=== PATIENT | male | born 1970 | race Caucasian/White ===

== ENCOUNTER 2025-01-15 11:31 | Emergency (ER) | payer OTHER, SELFPAY ==
[2025-01-15 11:37] VITALS: BP 154/99
[2025-01-15 14:20] VITALS: BP 129/87
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
[2025-01-15] MEDS: DECADRON 10 MG PO (14:58)
[2025-01-15] MEDS: MOTRIN 600 MG PO (14:58)
== END 2025-01-15 15:01 | disposition home or self-care (01) ==
LOC: EMR 11:31
PROVIDERS: EMERGENCY PHYSICIAN Emergency Medicine; FAMILY PHYSICIAN Physician Assistant Medical
DX: R51.9 Headache, unspecified (principal); R20.0 Anesthesia of skin; G62.9 Polyneuropathy, unspecified; M54.2 Cervicalgia; H53.8 Other visual disturbances; R25.3 Fasciculation; R53.1 Weakness; W20.8XXA Other cause of strike by thrown, projected or falling object, initial encounter; Z79.82 Long term (current) use of aspirin
CPT/HCPCS: 99284; 70450